=== PATIENT | male | born 1995 | race Caucasian/White ===

== ENCOUNTER 2017-03-09 13:33 | Emergency (ER) | payer BC ==
[2017-03-09 13:47] VITALS: RESP 16; TEMP 98.1
[2017-03-09] MEDS ORDERED: LET GEL TOPICAL 1 EA SYR TP ONE (13:57)
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
[2017-03-09] MEDS ORDERED: ONDANSETRON DISINTEGRATING 4 MG TAB PO ONE (14:20)
[2017-03-09 15:14] VITALS: BP 129/72; PULSE 56; O2SAT 97
== END 2017-03-09 15:13 | disposition home or self-care (01) ==
DX: S20.212A Contusion of left front wall of thorax, initial encounter (principal); S20.312A Abrasion of left front wall of thorax, initial encounter; V18.4XXA Pedal cycle driver injured in noncollision transport accident in traffic accident, initial encounter; Y92.410 Unspecified street and highway as the place of occurrence of the external cause; Y93.55 Activity, bike riding

== ENCOUNTER 2018-06-10 04:09 | Emergency (ER) | payer BC ==
[2018-06-10 04:16] VITALS: BP 135/76
--- NOTE | 2018-06-10 04:18 | EDPHY ---
H & P Stated Complaint: left hip injury Time Seen by Provider: 06/10/18 04:18 HPI/ROS: HPI CHIEF COMPLAINT: Left hip pain. HISTORY OF PRESENT ILLNESS: 23-year-old male, otherwise healthy without any significant medical history, presents to the emergency room with left lateral hip pain. Patient states that he was hopping up on the sidewalk and twisted his left hip and developed left lateral hip pain. He is able to bear weight. He denies directly falling on his left hip. Denies abdominal pain, or back pain. Main complaint left lateral hip. Past Medical History: No significant medical history Past Surgical History: No significant surgical history Social History: Denies drugs alcohol tobacco. Family History: Noncontributory ROS REVIEW OF SYSTEMS: 10 Systems were reviewed and negative with the exception of the elements mentioned in the history of present illness. Exam Constitutional triage nursing summary reviewed, vital signs reviewed, awake/ alert. Eyes normal conjunctivae and sclera, EOMI, PERRLA. HENT normal inspection, atraumatic, moist mucus membranes, no epistaxis, neck supple/ no meningismus, no raccoon eyes. Respiratory clear to auscultation bilaterally, normal breath sounds, no respiratory distress, no wheezing. Cardiovascular rate normal, regular rhythm, no murmur, no edema, distal pulses normal. Gastrointestinal soft, non-tender, no rebound, no guarding, normal bowel sounds, no distension, no pulsatile mass. Genitourinary no CVA tenderness. Musculoskeletal left leg: Neurovascular intact good distal pulse, good cap refill, full flexion extension left hip. Compartments soft. No obvious sign of trauma of the left hip. mild ttp left lateral hip, also with internal rotation of the left leg/with flexed hip he has left lateral hip pain. Otherwise Good distal pulse, good cap refill, warm extremity. Not shortened or externally rotated. Able to bear weight and walk. No ecchymosis. no midline vertebral tenderness, full range of motion, no calf swelling, no tenderness of extremities, no meningismus, good pulses, neurovascularly intact. Skin pink, warm, & dry, no rash, skin atraumatic. Neurologic awake, alert and oriented x 3, AAOx3, moves all 4 extremities equally, motor intact, sensory intact, CN II-XII intact, normal cerebellar, normal vision, normal speech. Psychiatric normal mood/affect. Heme/Lymph/Immune no lymphadenopathy. Differential Diagnosis: Includes but is not limited to in a particular order left hip contusion, left hip strain left hip fracture, dislocation relocation, soft tissue injury, musculoskeletal injury Medical Decision Making: Plan for this patient ibuprofen 800 mg, x-ray left hip , and re-evaluate. Re-evaluation: X-ray of the left hip reviewed. Negative for acute traumatic injury. Patient is able to flex and extend his leg. Distally neurovascular intact. Will give him crutches to help ambulate. I believe he is a musculoskeletal injury when he flexes hip and turns his leg although in route to give some discomfort. Recommend ice, anti-inflammatory pain medicine. Recommend crutches Recommend following up with Orthopedics Patient reports to me that he has a flight to catch this morning. He is requesting airline excuse. I will provide him with this. Source: Patient - Personal History Current Tetanus Diphtheria and Acellular Pertussis (TDAP): Yes - Medical/Surgical History Hx Asthma: No Hx Chronic Respiratory Disease: No Hx Diabetes: No Hx Cardiac Disease: No Hx Renal Disease: No Hx Cirrhosis: No Hx Alcoholism: No Hx HIV/AIDS: No Hx Splenectomy or Spleen Trauma: No Other PMH: denies - Social History Smoking Status: Never smoked Constitutional: Initial Vital Signs Temperature (C) 37.4 C 06/10/18 04:13 Heart Rate 106 H 06/10/18 04:13 Respiratory Rate 20 06/10/18 04:13 Blood Pressure 135/76 H 06/10/18 04:13 O2 Sat (%) 93 06/10/18 04:13 Allergies/Adverse Reactions: No Known Allergies Allergy (Unverified 06/10/18 04:13) Home Medications: Medication Instructions Recorded Ibuprofen [Motrin (*)] 800 mg PO Q6-8PRN #10 tab 06/10/18 Medical Decision Making - Data Points Medications Given: Discontinued Medications Ibuprofen (Motrin) 800 mg PO EDNOW ONE Stop: 06/10/18 04:23 Last Admin: 06/10/18 05:17 Dose: 800 mg Departure - Departure Disposition: Home, Routine, Self-Care Clinical Impression: Muscle strain Contusion, hip Qualifiers: Encounter type: initial encounter Laterality: left Qualified Code(s): S70.02XA - Contusion of left hip, initial encounter Condition: Good Instructions: Hip Contusion (ED) Additional Instructions: 1. Recommend ice. 2. Rest. 3. Anti-inflammatory pain medicine like Tylenol and Motrin 4. Follow up with Orthopedics. Referrals: Kristin Joy MD [Medical Doctor] - As per Instructions Stand Alone Forms: Airline Excuse Prescriptions: Ibuprofen [Motrin (*)] 800 mg PO Q6-8PRN #10 tab
[2018-06-10] MEDS ORDERED: IBUPROFEN 800 MG TAB PO ONE (04:22)
== END 2018-06-10 05:41 | disposition home or self-care (01) ==
DX: S76.011A Strain of muscle, fascia and tendon of right hip, initial encounter (principal); S70.02XA Contusion of left hip, initial encounter; X50.1XXA Overexertion from prolonged static or awkward postures, initial encounter; Y92.89 Other specified places as the place of occurrence of the external cause; Y93.9 Activity, unspecified; Y99.9 Unspecified external cause status